=== PATIENT | male | born 1955 | race American Indian/Alaskan Native ===

== ENCOUNTER 2021-11-19 08:50 | Outpatient (CLI) | payer MEDICARE, OTHER ==
[2021-11-19 09:42] LABS: Blood Urea Nitrogen 12 mg/dL (9-20)
--- NOTE | 2021-11-19 10:30 | Cat Scan Report ---
CT ABDOMEN AND PELVIS WITHOUT CONTRAST INDICATION: C61 prostate cancer. TECHNIQUE: Axial CT images were obtained through the abdomen and pelvis without IV contrast. [facility] CT [facility] are performed using CT dose reduction for ALARA by means of automated exposure control. COMPARISON: None available. FINDINGS: LOWER CHEST: No significant abnormality. LIVER: No significant abnormality. GALLBLADDER: No significant abnormality. BILE DUCTS: No significant abnormality. PANCREAS: No significant abnormality. SPLEEN: No significant abnormality. ADRENALS: No significant abnormality. RIGHT KIDNEY and URETER: No significant abnormality. LEFT KIDNEY and URETER: No significant abnormality. STOMACH and SMALL BOWEL: No significant abnormality. COLON: No significant abnormality. APPENDIX: Normal. PERITONEUM: No free fluid. No free air. No fluid collection. LYMPH NODES: No significant adenopathy. AORTA and ARTERIES: No significant abnormality. IVC and VEINS: No significant abnormality. URINARY BLADDER: No significant abnormality. REPRODUCTIVE ORGANS: Enlarged prostate measures 5.5 cm transversely. ADDITIONAL FINDINGS: Small fat-containing umbilical hernia. SKELETAL SYSTEM: Moderate degenerative changes of lumbar spine. IMPRESSION: 1. No significant abnormality. No CT evidence for natasha or skeletal metastatic disease. Signer Name: Tushar Sullivan MD Signed: 11/19/2021 10:26 AM Workstation Name: [id number]
--- NOTE | 2021-11-19 13:33 | Nuclear Medicine Report ---
NUCLEAR MEDICINE BONE SCAN, WHOLE BODY INDICATION / CLINICAL INFORMATION: C61. TECHNIQUE: 3 mCi of Tc-99m MDP were injected IV. Images were obtained of the whole body. COMPARISON: No relevant prior imaging study available. FINDINGS: ARTICULAR STRUCTURES: Mild, relatively symmetric, periarticular activity which is likely degenerative . SKELETAL LESIONS: Focal uptake is seen in the left posterior fifth rib. No additional abnormal foci o f uptake are seen. SOFT TISSUES: Normal. KIDNEYS: Normal. ADDITIONAL FINDINGS: None. IMPRESSION: 1. Focal abnormal uptake in the left posterior fifth rib. This could be due to a rib fracture. Solita ry metastatic lesion is considered to be less likely. 2. No additional evidence for metastatic disease. Signer Name: Alexey Domingo MD Signed: 11/19/2021 1:28 PM Workstation Name: [id number]
== END 2021-11-19 08:51 | disposition home or self-care (01) ==
LOC: NM 08:50
PROVIDERS: ATTEND Urology
DX: C61 Malignant neoplasm of prostate (principal); N40.0 Benign prostatic hyperplasia without lower urinary tract symptoms; K42.9 Umbilical hernia without obstruction or gangrene; M47.816 Spondylosis without myelopathy or radiculopathy, lumbar region
CPT/HCPCS: 36415; 74176; 78306; 82565; 84520; A9503